=== PATIENT | male | born 1965 | race Caucasian/White ===

== ENCOUNTER → 2024-01-02 | Emergency (ER) | payer MEDICAID ==
[~2024-01-02] VITALS: Ht 177.8 cm; Wt 79.5 kg
[2024-01-02 13:20] VITALS: BP 165/71; PULSE 104; RESP 16; TEMP 100.1; O2SAT 100
[2024-01-02] MEDS: acetaminophen 325mg tablet PO ONE (15:27)
== END | disposition home or self-care (01) ==
LOC: ER 12:31
DX: S70.02XA Contusion of left hip, initial encounter (principal); Z59.00 Homelessness unspecified; F10.90 Alcohol use, unspecified, uncomplicated; Y04.0XXA Assault by unarmed brawl or fight, initial encounter; Y93.89 Activity, other specified; Y92.89 Other specified places as the place of occurrence of the external cause; Y99.8 Other external cause status
CPT/HCPCS: 73502; 99283

== ENCOUNTER 2024-01-03 09:09 | Emergency (ER) | payer MEDICAID, OTHER ==
[~2024-01-03] VITALS: Ht 177.8 cm; Wt 81.7 kg
[2024-01-03 09:25] VITALS: BP 146/77; PULSE 89; RESP 14; TEMP 99; O2SAT 100
== END 2024-01-03 09:35 | disposition home or self-care (01) ==
LOC: ER 09:10
DX: M25.559 Pain in unspecified hip (principal); Z59.00 Homelessness unspecified
CPT/HCPCS: 99283

== ENCOUNTER 2024-09-22 21:50 | Emergency (ER) | payer MEDICAID ==
[~2024-09-22] VITALS: Ht 177.8 cm; Wt 83.9 kg
[2024-09-23 01:12] VITALS: BP 155/78; PULSE 104; TEMP 99.7; O2SAT 99
[2024-09-23] MEDS ORDERED: risperiDONE 2mg tablet PO STA (01:29)
[2024-09-23] MEDS ORDERED: RISP2TAB97 PO (01:33)
[2024-09-23] MEDS ORDERED: OXYC-658 PO (01:33)
[2024-09-23] MEDS ORDERED: RISP3TAB11 PO (01:33)
[2024-09-23 01:48] VITALS: RESP 20
[2024-09-23] MEDS: oxyCODONE IR 5mg (immed. release) tablet PO ONE (01:48)
[2024-09-23] MEDS: risperiDONE 2mg tablet PO STA (01:49)
== END 2024-09-23 01:52 | disposition home or self-care (01) ==
LOC: ER 21:52 → EEVIPCON 21:52 → ER 09-23 01:52
DX: F99 Mental disorder, not otherwise specified (principal); Z76.0 Encounter for issue of repeat prescription; G89.29 Other chronic pain; M54.9 Dorsalgia, unspecified; F10.90 Alcohol use, unspecified, uncomplicated; Y90.9 Presence of alcohol in blood, level not specified; Z59.00 Homelessness unspecified
CPT/HCPCS: 99283